=== PATIENT | female | born 1980 | race Caucasian/White ===

== ENCOUNTER → 2019-11-01 16:35 | Outpatient (BNVA) | payer BC, SELFPAY | PROVIDERS: Family Provider Nurse Practitioner Family; Visit Provider Nurse Practitioner Family | DX: R05 Cough (principal); R50.9 Fever, unspecified; R68.89 Other general symptoms and signs | CPT/HCPCS: 87400; 87880 ==

== ENCOUNTER → 2019-11-02 17:00 | Outpatient (BNVA) | payer BC, SELFPAY | PROVIDERS: Family Provider Nurse Practitioner Family; Visit Provider Nurse Practitioner Family | DX: R05 Cough (principal); R50.9 Fever, unspecified; R68.89 Other general symptoms and signs; J22 Unspecified acute lower respiratory infection | CPT/HCPCS: 87635 ==

== ENCOUNTER 2019-11-15 12:50 | Outpatient (CLI) | payer BC, SELFPAY ==
--- NOTE | 2019-11-15 13:02 | XR_ITS ---
WS: [id number] PROCEDURE: XR chest 2V* [id number] CLINICAL INFORMATION: pneumonia r/o lung cancer COMPARISON: January 04, 2015 FINDINGS: Heart: Cardiomegaly. Lungs: Infiltrate and subsegmental atelectasis in the left hilum extending into the left upper lobe. Recommend correlation for pneumonia. Mild chronic emphysematous changes. No significant pleural fluid . Bones: Normal visualized bony structures. XR/XR chest 2V* [id number] IMPRESSION: 1. Patchy infiltrate with subsegmental atelectasis in the left hilum extendin g into the left upper lobe. Recommend correlation for pneumonia and further sherrill luation with chest CT. This should be followed up to resolution.
== END 2019-11-15 12:51 | disposition home or self-care (01) ==
LOC: RADWPI 12:54
PROVIDERS: Family Provider Nurse Practitioner Family; PCP Nurse Practitioner Family; Visit Provider Nurse Practitioner Family
DX: J18.9 Pneumonia, unspecified organism (principal); I10 Essential (primary) hypertension; I51.7 Cardiomegaly; J98.11 Atelectasis; R91.8 Other nonspecific abnormal finding of lung field
CPT/HCPCS: 71046; 80053; 81001; 85025

== ENCOUNTER → 2019-12-26 12:03 | Outpatient (BNVA) | payer BC, SELFPAY | PROVIDERS: Family Provider Nurse Practitioner Family; PCP Nurse Practitioner Family; Visit Provider Nurse Practitioner Family | DX: I10 Essential (primary) hypertension (principal) | CPT/HCPCS: 84439; 84443; 84481 ==

== ENCOUNTER → 2020-02-22 14:55 | Outpatient (BNVA) | payer BC, SELFPAY | PROVIDERS: Family Provider Nurse Practitioner Family; PCP Nurse Practitioner Family; Visit Provider Nurse Practitioner Family | DX: N39.0 Urinary tract infection, site not specified (principal); R10.9 Unspecified abdominal pain | CPT/HCPCS: 74018; 81003; 81025 ==

== ENCOUNTER → 2021-10-01 14:38 | Outpatient (BNVA) | payer MEDICAID, SELFPAY | PROVIDERS: Family Provider Nurse Practitioner Family; PCP Nurse Practitioner Family; Visit Provider Nurse Practitioner Family | DX: G57.11 Meralgia paresthetica, right lower limb (principal); R20.0 Anesthesia of skin; R20.2 Paresthesia of skin; I10 Essential (primary) hypertension; Z79.899 Other long term (current) drug therapy; E55.9 Vitamin D deficiency, unspecified | CPT/HCPCS: 36415; 80053; 82306; 82607; 83036; 83735; 83921; 84100; 84439; 84443; 85025 ==

== ENCOUNTER 2021-10-02 14:38 | Outpatient (CLI) | payer BC, MEDICAID, SELFPAY ==
--- NOTE | 2021-10-02 14:51 | XR_ITS ---
WS: [email or web address] XR cervical spine 3V* [id number] REASON FOR EXAM: R20.0 - Anesthesia of skin FINDINGS: On the AP view the cervical spine demonstrates a mild rightward curvature. On the lateral view there is straightening/reversal of the normal cervical lordosis. The odontoid is normal. No compression deformity or focal lesion of the cervical vertebrae. Moderate narrowing of the intervertebral disc spaces C4-C7. Associated with small/moderate anterior o steophytes. There is 3 mm of anterolateral listhesis of C3 in relation to C4. There is 2 mm of rozina listhesis of C4 in relation to C5. Normal facet joint alignment. Mild uncovertebral body arthropathy C4-C7. XR/XR cervical spine 3V* [id number] IMPRESSION: Degenerative spondylosis as above.
--- NOTE | 2021-10-02 14:51 | XR_ITS ---
WS: [email or web address] XR lumbar spine 6V w f/e [id number] REASON FOR EXAM: R20.0 - Anesthesia of skin FINDINGS: Normal lumbar spine curvature on the AP and lateral views. No significant compression deformity or focal lesion of the lumbar vertebrae. There is mild narrowing of the L1-L2 disc space. The remaining disc spaces are intact and relatively well-preserved. There is no significant listhesis. No spondylolysis is identified. XR/XR lumbar spine 6V w f/e [id number] IMPRESSION: Mild narrowing of the L1-L2 disc space. The examination is otherwise unremarkab le.
== END 2021-10-02 14:39 | disposition home or self-care (01) ==
LOC: RAD 14:40
PROVIDERS: Family Provider Nurse Practitioner Family; PCP Nurse Practitioner Family; Visit Provider Nurse Practitioner Family
DX: R20.0 Anesthesia of skin (principal); R20.2 Paresthesia of skin
CPT/HCPCS: 72040; 72114

== ENCOUNTER 2021-10-15 13:20 | Outpatient (CLI) | payer MEDICAID, SELFPAY | END 2021-10-15 13:21 | disposition home or self-care (01) | LOC: SPT 13:21 | PROVIDERS: Family Provider Nurse Practitioner Family; PCP Nurse Practitioner Family; Visit Provider Physician Assistant | DX: Z46.89 Encounter for fitting and adjustment of other specified devices (principal); M25.531 Pain in right wrist | CPT/HCPCS: 97760; L3908 ==

== ENCOUNTER → 2021-10-17 15:10 | Outpatient (BNVA) | payer MEDICAID, SELFPAY | PROVIDERS: Family Provider Nurse Practitioner Family; PCP Nurse Practitioner Family; Visit Provider Nurse Practitioner Family | DX: R79.9 Abnormal finding of blood chemistry, unspecified (principal); R80.9 Proteinuria, unspecified; I10 Essential (primary) hypertension | CPT/HCPCS: 80053; 81003; 82043; 84100; 87077; 87086; 87184 ==

== ENCOUNTER 2021-10-28 11:19 | Outpatient (CLI) | payer MEDICAID, SELFPAY ==
--- NOTE | 2021-10-28 11:45 | MR_ITS ---
WS: [email or web address] MRI CERVICAL SPINE NONCONTRAST TECHNIQUE: Sagittal T1, T2 and STIR imaging. Axial T2, gradient, and fiesta imaging. CLINICAL INFORMATION: M54.9 - Dorsalgia, unspecified COMPARISON: None. FINDINGS: Straightening of the normal cervical lordosis. Mild disc bulging worse at C3-C4 and C4-C5. Cord signa l is normal. No high-grade central canal stenosis. C2-C3: Normal. C3-C4: Mild disc bulging with slight effacement of ventral thecal sac. Moderate facet arthropathy. Mi ld LEFT greater than RIGHT bony foraminal narrowing. Spinal canal is patent. C4-C5: Mild disc osteophyte complex with endplate ridging. Mild to moderate LEFT and no significant R IGHT foraminal narrowing. Mild facet arthropathy. C5-C6: Mild disc bulging with slight effacement of ventral thecal sac. Mild LEFT and no significant R IGHT foraminal narrowing. Spinal canal is patent. C6-C7: No significant disc bulging. Spinal canal and foramen are patent. C7-T1: Mild LEFT and no significant RIGHT foraminal narrowing. Spinal canal is patent. Visualized brain stem structures: Normal. Prevertebral soft tissues: Normal. MR/MR cervical spin wo con* [id number] IMPRESSION: 1. Straightening of the normal cervical lordosis. Cord signal is normal. 2. Mild disc bulging worse at C3-C4 and C4-C5. No significant central canal st enosis. 3. Mild to moderate bony foraminal narrowing worse at LEFT C3-C4, LEFT C4-C5, LEFT C5-C6 and LEFT C7-T1. 4. Moderate facet arthropathy C3-C4.
== END 2021-10-28 11:20 | disposition home or self-care (01) ==
LOC: RAD 11:21
PROVIDERS: PCP Nurse Practitioner Family; Visit Provider Physician Assistant
DX: M50.21 Other cervical disc displacement, high cervical region (principal); M47.812 Spondylosis without myelopathy or radiculopathy, cervical region
CPT/HCPCS: 72141

== ENCOUNTER → 2021-11-20 14:15 | Outpatient (BNVA) | payer MEDICAID, SELFPAY | PROVIDERS: PCP Nurse Practitioner Family; Visit Provider Podiatrist Foot & Ankle Surgery | DX: M76.61 Achilles tendinitis, right leg (principal); M76.62 Achilles tendinitis, left leg; F17.210 Nicotine dependence, cigarettes, uncomplicated | CPT/HCPCS: 99203; 99204 ==

== ENCOUNTER → 2022-01-01 09:45 | Outpatient (BNVA) | payer MEDICAID, SELFPAY | PROVIDERS: Visit Provider Specialist | DX: G56.03 Carpal tunnel syndrome, bilateral upper limbs (principal) | CPT/HCPCS: 95910; 95912 ==

== ENCOUNTER → 2022-01-21 10:52 | Outpatient (BNVA) | payer MEDICAID, SELFPAY | PROVIDERS: Visit Provider Physician Assistant | DX: M70.61 Trochanteric bursitis, right hip (principal); G56.03 Carpal tunnel syndrome, bilateral upper limbs; M47.812 Spondylosis without myelopathy or radiculopathy, cervical region | CPT/HCPCS: 20610; 99213; J1100; J2795 ==

== ENCOUNTER → 2022-01-24 12:03 | Outpatient (BNVA) | payer MEDICAID, SELFPAY | PROVIDERS: Visit Provider Podiatrist Foot & Ankle Surgery | DX: M76.61 Achilles tendinitis, right leg (principal); M76.62 Achilles tendinitis, left leg | CPT/HCPCS: 99213; 99214 ==

== ENCOUNTER → 2022-06-03 13:18 | Outpatient (BNVA) | payer MEDICAID, SELFPAY | PROVIDERS: PCP Nurse Practitioner; Visit Provider Nurse Practitioner | DX: N39.0 Urinary tract infection, site not specified (principal) | CPT/HCPCS: 81000; 87086 ==

== ENCOUNTER 2022-10-24 11:13 | Outpatient (CLI) | payer MEDICAID, SELFPAY ==
--- NOTE | 2022-10-24 11:39 | MM_ITS ---
WS: [email or web address] BILATERAL SCREENING DIGITAL TOMOSYNTHESIS MAMMOGRAM WITH CAD HISTORY: SCREEN COMPARISON: None available. Bilateral CC and MLO views with tomosynthesis and synthetic mammography submitted. Computer aided det ection analyzed. Breast composition: The breasts are heterogeneously dense, which may obscure small masses. No suspici ous masses, microcalcifications or architectural distortion. Benign calcifications in each breast. MM/[place] [id number] IMPRESSION: BI-RADS: 2-Benign FOLLOW UP: 1 Year Follow-up
== END 2022-10-24 11:14 | disposition home or self-care (01) ==
LOC: RAD 11:14
PROVIDERS: PCP Nurse Practitioner; Visit Provider Nurse Practitioner Family
DX: Z12.31 Encounter for screening mammogram for malignant neoplasm of breast (principal)
CPT/HCPCS: 77063; 77067

== ENCOUNTER → 2023-06-01 12:02 | Outpatient (BNVA) | payer MEDICAID, SELFPAY | PROVIDERS: PCP Nurse Practitioner; Visit Provider Nurse Practitioner Family | DX: S46.912A Strain of unspecified muscle, fascia and tendon at shoulder and upper arm level, left arm, initial encounter (principal); X58.XXXA Exposure to other specified factors, initial encounter | CPT/HCPCS: 73030 ==

== ENCOUNTER → 2023-06-30 11:43 | Outpatient (BNVA) | payer MEDICAID, SELFPAY | PROVIDERS: PCP Nurse Practitioner; Visit Provider Nurse Practitioner Family | DX: N92.0 Excessive and frequent menstruation with regular cycle (principal); R10.2 Pelvic and perineal pain; Z79.899 Other long term (current) drug therapy; E55.9 Vitamin D deficiency, unspecified; I10 Essential (primary) hypertension; Z13.6 Encounter for screening for cardiovascular disorders; R25.2 Cramp and spasm; N92.1 Excessive and frequent menstruation with irregular cycle | CPT/HCPCS: 80053; 80061; 81003; 82306; 83036; 83735; 84443; 85025 ==

== ENCOUNTER 2023-07-14 14:12 | Outpatient (CLI) | payer MEDICAID, SELFPAY ==
--- NOTE | 2023-07-14 14:15 | USR_ITS ---
PROCEDURE INFORMATION: Exam: US Pelvis, Transvaginal Exam date and time: 07/14/2023 2:23 PM Age: 42 years old Clinical indication: Menstruation abnormalities; Excessive menstruation; Additional info: N92.0 - excessive and frequent menstruation with regular . . . TECHNIQUE: Imaging protocol: Real-time transvaginal pelvic ultrasound with image documentation. Transvaginal imaging was used for better evaluation of the endometrium, adnexa, and/or cervix. COMPARISON: US pelv w/transvag [id number] 03/30/2019 2:54 PM FINDINGS: Uterus: The uterus measures 7.9 x 4.2 x 6.0 cm in size. The endometrial stripe measures 5 mm. A 1.3 x 1.2 x 1.4 cm anterior uterine body mass consistent with a fibroid is present. section scar noted. Right ovary/adnexa: The right ovary measures 3.4 x 2.4 x 3.2 cm. The right ovary contains small cysts/follicles up to 1.3 cm in size.Blood flow is identified by both color and spectral Doppler. Left ovary/adnexa: The left ovary measures 3.3 x 1.7 x 4.1 cm. Blood flow is identified by both color and spectral Doppler. Intraperitoneal space: No free fluid. Soft tissues: US/US transvaginal [id number] IMPRESSION: 1. Endometrial stripe thickness = 5 mm. Please correlate with menstrual status. 2. Right ovarian follicles/cysts up to 1.3 cm. 3. Anterior uterine body mass consistent with small fibroid.
== END 2023-07-14 14:13 | disposition home or self-care (01) ==
LOC: RAD 14:13
PROVIDERS: PCP Nurse Practitioner; Visit Provider Nurse Practitioner Family
DX: N92.0 Excessive and frequent menstruation with regular cycle (principal); R10.2 Pelvic and perineal pain; N85.9 Noninflammatory disorder of uterus, unspecified
CPT/HCPCS: 76830

== ENCOUNTER 2023-11-18 13:30 | Outpatient (CLI) | payer MEDICAID, SELFPAY ==
--- NOTE | 2023-11-18 13:30 | MM_ITS ---
WS: [email or web address] BILATERAL 3D TOMOSYNTHESIS DIGITAL SCREENING MAMMOGRAPHY WITH CAD CLINICAL INFORMATION: SCREENING HISTORY: Screening mammogram. No current complaints. COMPARISON: 2022 TECHNIQUE: Bilateral CC and MLO views. FINDINGS: The breasts are composed of heterogeneous fibroglandular density tissue, which can limit the detectio n of small underlying mass lesions. No suspicious mass, asymmetry, calcifications, or architectural d istortion. No evidence of malignancy. Few incidental punctate calcifications. Stable nodular breast t issue upper outer RIGHT breast MM/[place] [id number] IMPRESSION: BI-RADS: 2-Benign FOLLOW UP: 1 Year Follow-up Recommend return to annual screening mammography.
== END 2023-11-18 13:31 | disposition home or self-care (01) ==
LOC: MOBLMAM 13:34
PROVIDERS: PCP Nurse Practitioner Family; Visit Provider Nurse Practitioner Family
DX: Z12.31 Encounter for screening mammogram for malignant neoplasm of breast (principal); R92.333 Mammographic heterogeneous density, bilateral breasts
CPT/HCPCS: 77063; 77067

== ENCOUNTER → 2024-03-03 10:34 | Outpatient (BNVA) | payer MEDICAID, SELFPAY | PROVIDERS: PCP Nurse Practitioner Family; Visit Provider Nurse Practitioner Family | DX: L65.9 Nonscarring hair loss, unspecified (principal); N92.0 Excessive and frequent menstruation with regular cycle; N93.9 Abnormal uterine and vaginal bleeding, unspecified; D25.9 Leiomyoma of uterus, unspecified | CPT/HCPCS: 82306; 82607; 82672; 82746; 83001; 83002; 83540; 84443 ==

== ENCOUNTER → 2024-06-02 09:38 | Outpatient (BNVA) | payer MEDICAID, SELFPAY | PROVIDERS: PCP Nurse Practitioner Family; Visit Provider Nurse Practitioner Family | DX: R10.9 Unspecified abdominal pain (principal); R80.9 Proteinuria, unspecified; I10 Essential (primary) hypertension; E55.9 Vitamin D deficiency, unspecified; R79.9 Abnormal finding of blood chemistry, unspecified; Z79.899 Other long term (current) drug therapy; Z13.6 Encounter for screening for cardiovascular disorders | CPT/HCPCS: 74018; 80053; 80061; 81000; 81003; 82306; 82570; 83036; 84100; 84156; 84443; 85025 ==

== ENCOUNTER 2024-06-07 07:10 | Outpatient (CLI) | payer MEDICAID, SELFPAY ==
--- NOTE | 2024-06-07 07:17 | XR_ITS ---
WS: [email or web address] Exam: XR hip BI m 5V wo/w pel* [id number] Date/Time of Exam: 06/07/2024 8:08 AM Reason For Exam: M25.859 - Other specified joint disorders, unspecified hip No fracture identified. Mild degenerative change of the bilateral acetabulum. The joint compartments are relatively well-maintained. Acetabular morphology might predispose the patient to femoral acetabu lar impingement. Bony changes in the pelvis to suggest diffuse idiopathic skeletal hyperostosis. XR/XR hip BI m 5V wo/w pel* [id number] IMPRESSION: 1. Minimal degenerative change of the RIGHT and LEFT acetabulum. Acetabular mor phology that might predispose the patient to femoral acetabular impingement. 2. No fracture. Other minor findings as above.
--- NOTE | 2024-06-07 07:17 | XR_ITS ---
WS: [email or web address] Exam: XR thoracic spine 3V* [id number] Date/Time of Exam: 06/07/2024 8:08 AM Reason For Exam: M51.34 - Other intervertebral disc degeneration, thoracic... No fracture. Mild spondylosis noted. No significant scoliosis. Unremarkable paraspinal soft tissues. XR/XR thoracic spine 3V* [id number] IMPRESSION: 1. Mild degenerative change. No fracture or malalignment.
--- NOTE | 2024-06-07 07:17 | XR_ITS ---
WS: [email or web address] Exam: XR lumbar spine 6V w f/e [id number] Date/Time of Exam: 06/07/2024 8:08 AM Reason For Exam: M51.369 - Other intervertebral disc degeneration, lumbar ... No fracture noted. Disc spaces are preserved. Posterior elements are intact. No flexion or extension instability noted. Minimal facet DJD at L4-5 and L5-S1. XR/XR lumbar spine 6V w f/e [id number] IMPRESSION: 1. Minimal DJD otherwise negative lumbar spine study.
== END 2024-06-07 07:11 | disposition home or self-care (01) ==
PROVIDERS: PCP Nurse Practitioner Family; Visit Provider Nurse Practitioner Family
DX: M25.851 Other specified joint disorders, right hip (principal); M51.34 Other intervertebral disc degeneration, thoracic region; M51.369 Other intervertebral disc degeneration, lumbar region without mention of lumbar back pain or lower extremity pain; M46.1 Sacroiliitis, not elsewhere classified; M25.859 Other specified joint disorders, unspecified hip; Q65.89 Other specified congenital deformities of hip
CPT/HCPCS: 72072; 72114; 73523

== ENCOUNTER → 2024-07-07 13:21 | Outpatient (BNVA) | payer MEDICAID, SELFPAY | PROVIDERS: PCP Nurse Practitioner Family; Visit Provider Orthopaedic Surgery | DX: M54.6 Pain in thoracic spine (principal); G89.29 Other chronic pain; M54.2 Cervicalgia | CPT/HCPCS: 72050; 72072; 72110 ==

== ENCOUNTER 2024-07-20 06:30 | Outpatient (RCR) | payer MEDICAID, SELFPAY | END 2024-08-19 23:59 | disposition home or self-care (01) | LOC: WPT 06:30 | PROVIDERS: Visit Provider Orthopaedic Surgery | DX: M54.9 Dorsalgia, unspecified (principal); G89.29 Other chronic pain | CPT/HCPCS: 97110; 97530 ==

== ENCOUNTER 2024-08-20 06:00 | Outpatient (RCR) | payer MEDICAID, SELFPAY | END 2024-09-16 23:59 | disposition home or self-care (01) | LOC: WPT 06:00 | PROVIDERS: Visit Provider Orthopaedic Surgery | DX: M54.9 Dorsalgia, unspecified (principal); G89.29 Other chronic pain | CPT/HCPCS: 97110; 97530 ==

== ENCOUNTER 2024-12-21 09:21 | Outpatient (CLI) | payer MEDICAID, SELFPAY ==
--- NOTE | 2024-12-21 09:20 | MM_ITS ---
WS: [email or web address] SCREENING DIGITAL BREAST TOMOSYNTHESIS MAMMOGRAM WITH CAD HISTORY: SCREENING COMPARISON: 11/18/2023, 10/24/2022 Bilateral CC and MLO with tomosynthesis and synthetic mammography submitted. Computer aided detection analyzed. Breast composition: The breasts are heterogeneously dense, which may obscure small masses. Increasing density in the LEFT retroareolar region. There is no discrete mass identified or distortion. No nipple retraction. This may be related to compression of the breast. Benign calcifications LEFT breast. MM/MM scr BI tomosynthesis [id number] IMPRESSION: BI-RADS: 0 - Incomplete: Need additional imaging evaluation FOLLOW UP: Need Additional Imaging LEFT breast: Spot compression views (CC and MLO). True ML. Ultrasound to follow if abnormality persists.
== END 2024-12-21 09:22 | disposition home or self-care (01) ==
LOC: MOBLMAM 09:24
PROVIDERS: PCP Nurse Practitioner Family; Visit Provider Nurse Practitioner Family
DX: Z12.31 Encounter for screening mammogram for malignant neoplasm of breast (principal); R92.333 Mammographic heterogeneous density, bilateral breasts; N63.20 Unspecified lump in the left breast, unspecified quadrant; R92.1 Mammographic calcification found on diagnostic imaging of breast
CPT/HCPCS: 77063; 77067

== ENCOUNTER 2024-12-22 10:30 | Outpatient (CLI) | payer MEDICAID, SELFPAY | END 2024-12-22 10:31 | disposition home or self-care (01) | LOC: LAB 12-23 07:02 | PROVIDERS: PCP Nurse Practitioner Family; Visit Provider Nurse Practitioner Family | DX: I10 Essential (primary) hypertension (principal); Z13.6 Encounter for screening for cardiovascular disorders; E55.9 Vitamin D deficiency, unspecified; Z20.5 Contact with and (suspected) exposure to viral hepatitis; R60.9 Edema, unspecified | CPT/HCPCS: 80053; 80061; 80074; 81003; 82306; 83036; 83880; 84443; 85025 ==

== ENCOUNTER 2025-01-03 08:49 | Outpatient (CLI) | payer MEDICAID, SELFPAY ==
--- NOTE | 2025-01-03 08:54 | MM_ITS ---
WS: [email or web address] ADDITIONAL VIEWS LEFT MAMMOGRAM WITH DIGITAL BREAST TOMOSYNTHESIS. LEFT breast ultrasound, limited HISTORY: ABNORMAL MAMMO COMPARISON: 12/21/2024 Spot compression views LEFT breast in CC, MLO projections and true ML submitted with digital breast tomosynthesis and . Breast composition: The breasts are heterogeneously dense, which may obscure small masses. Increased density and heterogeneity persists posterior to the nipple. There is no mass identified. This may all be normal fibroglandular density. Ultrasound to follow. No nipple retraction. LEFT breast ultrasound, limited. Very dense fibroglandular tissue in the retroareolar region. There are a few dilated ducts. No intraductal mass. No increased vascularity. MM/MM diag LT tomosynthesis [id number] IMPRESSION: BI-RADS: 2 - Benign FOLLOW UP: 1 Year Follow-up
--- NOTE | 2025-01-03 09:30 | US_ITS ---
WS: [email or web address] ADDITIONAL VIEWS LEFT MAMMOGRAM WITH DIGITAL BREAST TOMOSYNTHESIS. LEFT breast ultrasound, limited HISTORY: ABNORMAL MAMMO COMPARISON: 12/21/2024 Spot compression views LEFT breast in CC, MLO projections and true ML submitted with digital breast tomosynthesis and SM. Breast composition: The breasts are heterogeneously dense, which may obscure small masses. Increased density and heterogeneity persists posterior to the nipple. There is no mass identified. This may all be normal fibroglandular density. Ultrasound to follow. No nipple retraction. LEFT breast ultrasound, limited. Very dense fibroglandular tissue in the retroareolar region. There are a few dilated ducts. No intraductal mass. No increased vascularity. US/US breast LT limited* [id number] IMPRESSION: BI-RADS: 2 - Benign FOLLOW UP: 1 Year Follow-up
== END 2025-01-03 08:50 | disposition home or self-care (01) ==
PROVIDERS: PCP Nurse Practitioner Family; Visit Provider Nurse Practitioner Family
DX: R92.322 Mammographic fibroglandular density, left breast (principal); R92.8 Other abnormal and inconclusive findings on diagnostic imaging of breast
CPT/HCPCS: 76642; 77061; G0279